=== PATIENT | male | born 1950 | race Caucasian/White ===

== ENCOUNTER 2018-10-30 12:42 | Inpatient (IN) ==
[2018-10-30] MEDS ORDERED: Sodium Chlor 0.9% Inj 500 ML IV.SIG ONE (13:39)
--- NOTE | 2018-10-30 13:52 | ED ---
HPI General Chief complaint: Weakness Stated complaint: CA pt/gen weakness Time Seen by Provider: 10/30/18 13:17 Source: patient and family Mode of arrival: ambulatory Limitations: no limitations History of Present Illness HPI Narrative: 68 YO M presents to the ED for evaluation of weakness and requesting consult by a general surgeon. The patient has been unable to drink fluids or eat solids for approximately 5+ days. The patient's is at bedside and provides the history. 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 He was diagnosed with lung cancer in 2016 and completed chemo and radiation in May of 2017. On 11/24/17 the patient was taken to the [facility] by ambulance when he was somnolent after taking some narcotic pain medications. While there he was found to have malignant disease progression of the left lung with invasion into the mediastinum and the osseous structures as well as pulmonary nodules along the upper left lobe. The patient's states that PEG tube placement was attempted by GI but they were unsuccessful secondary to inflammation, possibly invasion of the mass into the esophagus. The patient was then scheduled to have the PEG tube placed by general surgery. However, after the procedure was not performed in a timely manner the patient left AGAINST MEDICAL ADVICE from the outside hospital. On presentation the patient complains of hunger and weakness. He complains of left -sided chest and shoulder pain. He endorses O2 use at home. He denies palpitations, shortness of breath, abdominal pain, lower extremity edema. He has a primary care provider, Dr. Owens, here in [place] but has not yet established oncology follow-up since he recently moved from [place]. Related Data Home Medications Medication Instructions Recorded Confirmed levothyroxine 88 mcg PO DAILY 10/30/18 10/30/18 Allergies Allergy/AdvReac Type Severity Reaction Status Date / Time No Known Allergies Allergy Unverified 07/09/18 14:26 Review of Systems ROS: all other systems reviewed are negative [facility] Medical History Medical History DVT (deep venous thrombosis) (Acute) Lung cancer (Acute) Nasopharyngeal cancer (Acute) Surgical History Surgical History Hx of hernia repair (Acute) Social History Social History Substance History: No History of Abuse Smoking Status: Former smoker Tobacco Type: Cigarettes How Often Do You Have a Drink Containing Alcohol: Never Recent Travel in [facility] within the Last 8 Weeks: No Recent Out of Country Travel within the Last 8 Weeks: No Immunization History Tetanus Immunization: Unsure Exam Narrative Exam Narrative: GENERAL: Chronically ill-appearing white male in no acute distress. SKIN: Focused skin assessment warm/dry. HEAD: Atraumatic. Normocephalic. EYES: Pupils equal and round. No scleral icterus. No injection or drainage. ENT: No nasal bleeding or discharge. Mucous membranes pink and moist. NECK: Trachea midline. No JVD. CARDIOVASCULAR: Regular rate and rhythm. No murmur appreciated. RESPIRATORY: No accessory muscle use. Clear to auscultation. Breath sounds diminished in the left upper lobe. Patient's on 2 L O2 by nasal cannula. GASTROINTESTINAL: Abdomen soft, non-tender, nondistended. Hepatic and splenic margins not palpable. MUSCULOSKELETAL: No obvious deformities. No clubbing. No cyanosis. No edema. Homans sign negative bilaterally. NEUROLOGICAL: Awake and alert. No obvious cranial nerve deficits. Motor grossly within normal limits. Normal speech. PSYCHIATRIC: Appropriate mood and affect; insight and judgment normal. Course Initial Documented Vital Signs Temperature 97.6 F 10/30/18 12:50 Pulse Rate 79 10/30/18 12:50 Respiratory Rate 16 10/30/18 12:50 Blood Pressure 152/93 H 10/30/18 12:50 Pulse Oximetry 92 L 10/30/18 12:50 Last Documented Vital Signs Temperature 97.6 F 10/30/18 12:50 Pulse Rate 63 10/30/18 12:58 Respiratory Rate 18 10/30/18 12:58 Blood Pressure 184/102 H 10/30/18 12:58 Pulse Oximetry 92 L 10/30/18 12:50 Medical Decision Making JACQUELYN Attestation JACQUELYN supervised visit: Yes Attestation: The history, exam, and medical decision-making in the associated mid-level provider note were completed with my assistance. I reviewed and agree with the findings presented. I attest that I had a [id number] encounter with the patient on the same day, and personally performed and documented my assessment and findings in the medical record. *My assessment and Findings: 68-year-old man, head and neck cancer with mediastinal mass, unable to tolerate fluids, unable to get PEG tube at outside hospital. Recommend admission, IV fluid hydration, surgical consultation. MDM Narrative Medical decision making narrative: 68-year-old male with PMH of nasopharyngeal cancer and lung cancer presents to the ED requesting general surgery consult. Patient was seen at [facility] last week and found to have significant malignant disease progression from the left lung. The patient has been unable to eat or drink anything for at least 5 days. Gastroenterology attempted to place a PEG tube at the outside hospital but were unsuccessful secondary to distortion of the anatomy. The patient was awaiting general surgery PEG tube placement at [facility] when he left AGAINST MEDICAL ADVICE yesterday. Patient recently moved from [place], does not have an oncologist in the area. Hypertensive on presentation, chronically ill- appearing with diminished breath sounds in the left upper lobe. Exam otherwise unremarkable. IV was established. Patient was administered a half liter normal saline and 4 mg morphine. Records from the outside hospital were requested. They have not been received at time of admission. CBC reveals WBC 3.8, RBC 3.18, Hgb 9.7, Hct 28.1. CMP remarkable for BUN 33, Cr1.57. EKG unremarkable. I spoke with the residents who agree to accept the patient to the medicine service with general surgery consult. Please see their notes for disposition. Medical Screen Exam Complete: Yes Emergency Medical Condition: Yes Differential Diagnosis Differential Diagnosis: Metastatic lung CA versus dysphagia versus metabolic derangement versus other Lab Data Result diagrams: 10/30/18 13:46 10/30/18 13:46 Lab Results 10/30/18 10/30/18 10/30/18 Range/Units 13:46 13:46 13:46 WBC 3.8 L (4.0-11.0) th/mm3 RBC 3.18 L (4.50-5.90) mil/mm3 Hgb 9.7 L (13.0-17.0) gm/dL Hct 28.1 L (39.0-51.0) % MCV 88.4 (80.0-100.0) fL MCH 30.5 (27.0-34.0) pg MCHC 34.5 (32.0-36.0) % RDW 16.5 (11.6-17.2) % Plt Count 199 (150-450) th/mm3 MPV 7.6 (7.0-11.0) fL Neut % (Auto) 72.1 H (16.0-70.0) % Lymph % (Auto) 14.7 (9.0-44.0) % Barber % (Auto) 10.9 H (0.0-8.0) % Eos % (Auto) 2.1 (0.0-4.0) % Baso % (Auto) 0.2 (0.0-2.0) % Neut # (Auto) 2.7 (1.8-7.7) th/mm3 Lymph # (Auto) 0.6 L (1.0-4.8) th/mm3 Barber # (Auto) 0.4 (0.0-0.9) th/mm3 Eos # (Auto) 0.1 (0.0-0.4) th/mm3 Baso # (Auto) 0.0 (0.0-0.2) th/mm3 WBC Differential . Differential Comment Auto diff final PT 11.9 H (9.8-11.6) sec INR 1.2 Ratio Sodium 141 (136-145) meq/L Potassium 3.9 (3.5-5.1) meq/L Chloride 103 (98-107) meq/L Carbon Dioxide 31.9 (21.0-32.0) meq/L Anion Gap 6 (5-15) meq/L BUN 33 H (7-18) mg/dL Creatinine 1.57 H (0.60-1.30) mg/dL Estimated GFR 44 L (>89) mL/min Random Glucose 68 L (74-106) mg/dL Calcium 8.7 (8.5-10.1) mg/dL Magnesium 1.6 (1.5-2.5) mg/dL Total Bilirubin 0.5 (0.2-1.0) mg/dL AST 29 (15-37) U/L ALT 31 (12-78) U/L Alkaline Phosphatase 79 (45-117) U/L Troponin I (0.02-0.05) ng/mL Total Protein 6.8 (6.4-8.2) g/dL Albumin 3.2 L (3.4-5.0) g/dL Blood Type Blood Type Recheck Antibody Screen 10/30/18 10/30/18 Range/Units 13:46 13:46 WBC (4.0-11.0) th/mm3 RBC (4.50-5.90) mil/mm3 Hgb (13.0-17.0) gm/dL Hct (39.0-51.0) % MCV (80.0-100.0) fL MCH (27.0-34.0) pg MCHC (32.0-36.0) % RDW (11.6-17.2) % Plt Count (150-450) th/mm3 MPV (7.0-11.0) fL Neut % (Auto) (16.0-70.0) % Lymph % (Auto) (9.0-44.0) % Barber % (Auto) (0.0-8.0) % Eos % (Auto) (0.0-4.0) % Baso % (Auto) (0.0-2.0) % Neut # (Auto) (1.8-7.7) th/mm3 Lymph # (Auto) (1.0-4.8) th/mm3 Barber # (Auto) (0.0-0.9) th/mm3 Eos # (Auto) (0.0-0.4) th/mm3 Baso # (Auto) (0.0-0.2) th/mm3 WBC Differential Differential Comment PT (9.8-11.6) sec INR Ratio Sodium (136-145) meq/L Potassium (3.5-5.1) meq/L Chloride (98-107) meq/L Carbon Dioxide (21.0-32.0) meq/L Anion Gap (5-15) meq/L BUN (7-18) mg/dL Creatinine (0.60-1.30) mg/dL Estimated GFR (>89) mL/min Random Glucose (74-106) mg/dL Calcium (8.5-10.1) mg/dL Magnesium (1.5-2.5) mg/dL Total Bilirubin (0.2-1.0) mg/dL AST (15-37) U/L ALT (12-78) U/L Alkaline Phosphatase (45-117) U/L Troponin I Less than 0.02 L (0.02-0.05) ng/mL Total Protein (6.4-8.2) g/dL Albumin (3.4-5.0) g/dL Blood Type A Positive Blood Type Recheck Required Antibody Screen Negative Discharge Plan Discharge Disposition Patient Disposition: ED Admit(ED Internal Use Only) Discharge Order Discharge Orders: ED Use Only Admit Order (Routine); Ordered 10/30/18 Ordered By: Lilia Berrios Physicians Team ED Provider: Zafar Bojorquez ED Midlevel Provider: Lilia Berrios Primary Care Provider: Wilfred Leong Attending Provider: Spencer Garcia ED Status: Admitted Patient Addendum entered and electronically signed by SOPHIA Buchanan 10/30/18 15: 59: EKG rate 62, sinus rhythm. KS interval 162, QRS 94, QTc 438 ms. Normal axis. No acute ST changes.
[2018-10-30] MEDS ORDERED: Morphine Inj 4 MG/ML Vial IV.PUSH ONE ×2 (13:58→23:11)
[2018-10-30 14:02] LABS: Baso % (Auto) 0.2 % (0.0-2.0); Eos # (Auto) 0.1 th/mm3 (0.0-0.4); Eos % (Auto) 2.1 % (0.0-4.0); Hematocrit 28.1 % (39.0-51.0); Hemoglobin 9.7 gm/dL (13.0-17.0); Lymph # (Auto) 0.6 th/mm3 (1.0-4.8); Lymph % (Auto) 14.7 % (9.0-44.0); Mean Corpuscular HGB Conc 34.5 % (32.0-36.0); Mean Corpuscular Hemoglobin 30.5 pg (27.0-34.0); Mean Corpuscular Volume 88.4 fL (80.0-100.0); Mean Platelet Volume 7.6 fL (7.0-11.0); Mono # (Auto) 0.4 th/mm3 (0.0-0.9); Mono % (Auto) 10.9 % (0.0-8.0); Neut # (Auto) 2.7 th/mm3 (1.8-7.7); Neut % (Auto) 72.1 % (16.0-70.0); Platelet Count 199 th/mm3 (150-450); Red Blood Count 3.18 mil/mm3 (4.50-5.90); Red Cell Distribution Width 16.5 % (11.6-17.2); White Blood Count 3.8 th/mm3 (4.0-11.0)
[2018-10-30 14:12] LABS: INR 1.2 Ratio; Prothrombin Time 11.9 sec (9.8-11.6)
[2018-10-30 14:21] LABS: Albumin 3.2 g/dL (3.4-5.0); Anion Gap 6 meq/L (5-15); Aspartate Aminotransferase 29 U/L (15-37); Blood Urea Nitrogen 33 mg/dL (7-18); Calcium 8.7 mg/dL (8.5-10.1); Carbon Dioxide 31.9 meq/L (21.0-32.0); Chloride 103 meq/L (98-107); Glomerular Filtration Rate 44 mL/min (>89); Glucose,Random 68 mg/dL (74-106); Magnesium 1.6 mg/dL (1.5-2.5); Potassium 3.9 meq/L (3.5-5.1); Sodium 141 meq/L (136-145)
[2018-10-30 14:24] LABS: Alanine Aminotransferase 31 U/L (12-78); Alkaline Phosphatase 79 U/L (45-117); Total Protein 6.8 g/dL (6.4-8.2)
[2018-10-30] MEDS ORDERED: Bisacodyl 10 MG Supp RECTAL PRN ×2 (15:54→17:05)
[2018-10-30] MEDS ORDERED: Labetalol HCl Inj 100 MG/20 ML Vial IV.PUSH ONE (15:55)
--- NOTE | 2018-10-30 16:39 | P.HPFP ---
History of Present Illness Primary Care Physician: Wilfred Gladiskofiharman Leong <Spencer Garcia - 10/30/18 21:17> Wilfred Leong <Yanetbernadette Daphney Sullivan N - 10/30/18 16:39> History of Present Illness: 68-year-old male presenting to the hospital with dysphasia and inability to swallow both liquids and solids. He was recently hospitalized at [facility] for dysphagia. While at hospital, he was evaluated with a CT of the chest showing recurrent lung cancer on the left side with mediastinal involvement. While hospitalized, GI attempted to place a PEG tube, however felt that it was safer to proceed with surgical placement, however patient left AMA yesterday prior to surgical intervention. He continues to be unable to swallow and presents to our emergency department for further evaluation and possible surgical placement of PEG tube. He has a history significant for left lung cancer status post resection and chemotherapy with apparent recurrence and bony/mediastinal involvement. He does have an oncologist with Dr. Sapp, and a left upper chest port was recently placed earlier this week in preparation for chemotherapy. He has not had any treatment for this knee recurrence of lung cancer as of yet. 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 At that time he did require a PEG tube for nutrition <RadhaEmbery - 10/30/18 21:17> 68 y/o M presenting to the hospital w/dysphagia. Here with . Patient is difficult to understand. Went via ambulance to after passing out in the kitchen (was somnolent after taking narcotic pain medication). Imaging was performed and showed lung cancer w/possible mets to a left hilar lymph node. Met with oncologist Dr. Sapp. Did swallow study and showed severe dysphagia. About to have port and feeding tube placed. Tried to put feeding tube down his throat but he could feel the whole thing and was in severe pain. Planned to place PEG tube but due to procedure being delayed until , became upset and left AMA yesterday. Since then, still can't eat or drink and has not taken anything. Last year had lung cancer and got a wedge resection of the left and chemo. Since then, was getting regular imaging which showed clear lungs. Last done in April or May and was clear. Had just started to follow with oncologist, who is Dr. Sapp. PCP is Dr. Owens in [place]. Endorses LE edema, hunger, weakness, overall discomfort. No SOB, palpitations, abdominal pain. Hx limited by patient cooperativity, answers most of questions. Med Hx: Nasopharyngeal ca 9 years ago, treated w/chemo and radiation lung ca in 2017, chemo and radiation tx'd in 2017 HTN hypothyroidism Surg Hx: Double hernia repair Family Hx: unknown Social hx: Former smoker, 100 pack years No ETOH use, no drug use <Daphney Navarrete 10/30/18 17:58> - Diagnosis (1) Dysphagia (2) Lung cancer, primary, with metastasis from lung to other site (3) Hypertension (4) Hypothyroidism (5) KIM (acute kidney injury) <Spencer Garcia 10/30/18 21:17> (1) Dysphagia (2) Lung cancer, primary, with metastasis from lung to other site (3) Hypertension (4) Hypothyroidism (5) KIM (acute kidney injury) <Daphney Navarrete 10/30/18 17:25> Inpatient Certification: I certify that the inpatient services were ordered in accordance with Medicare regulations governing the order. This includes certification that hospital inpatient services are reasonable and necessary and in the case of services not specified as inpatient-only under 42 CFR 419.22(n), that they are appropriately provided as inpatient services in accordance to with the 2-midnight benchmark under 43 CFR 412.3(e) <Spencer Garcia 10/30/18 21:17> I certify that the inpatient services were ordered in accordance with Medicare regulations governing the order. This includes certification that hospital inpatient services are reasonable and necessary and in the case of services not specified as inpatient-only under 42 CFR 419.22(n), that they are appropriately provided as inpatient services in accordance to with the 2-midnight benchmark under 43 CFR 412.3(e) <Daphney Navarrete 10/30/18 16:39> Estimated Total Length of Stay (Days): 2 <Daphney Navarrete 10/30/18 16:39> Plans for Post Hospital Care: Not yet determined <Daphney Navarrete 10/30/18 16:39> Review of Systems All other systems reviewed negative except as stated in HPI, other (Unable to obtain clear ROS from patient due to cooperativity) <Daphney Navarrete 17:58> [facility] - History History Provided By: Patient <Daphney Navarrete 10/30/18 16:39> - Medical History Medical History: Medical History (Last Reviewed 10/30/18 @ 14:32 by SOPHIA Buchanan) DVT (deep venous thrombosis) Lung cancer Nasopharyngeal cancer <Spencer Garcia 10/30/18 21:17> Medical History (Last Reviewed 10/30/18 @ 14:32 by SOPHIA Buchanan) DVT (deep venous thrombosis) Lung cancer Nasopharyngeal cancer <Daphney Navarrete 10/30/18 16:39> - Surgical History Surgical History: Surgical History (Last Reviewed 10/30/18 @ 14:32 by SOPHIA Buchanan) Hx of hernia repair <Spencer Garcia 10/30/18 21:17> Surgical History (Last Reviewed 10/30/18 @ 14:32 by SOPHIA Buchanan) Hx of hernia repair <Daphney Navarrete 10/30/18 16:39> - Tobacco History Smoking Status: Former smoker <Daphney Navarrete 10/30/18 16:39> Tobacco Type: Cigarettes <Daphney Navarrete 10/30/18 16:39> - Alcohol History How Often Do You Have a Drink Containing Alcohol: Never <Daphney Navarrete 16:39> - Substance Use History Substance History: No History of Abuse <Daphney Navarrete 10/30/18 16:39> - Travel History Recent Travel in the [facility] Within the Last 8 Weeks: No <Daphney Navarrete 10/30 16:39> Recent Travel Out of the Country Within the Last 8 Weeks: No <Daphney Navarrete 10/30/18 16:39> - Immunization History Tetanus Immunization: Unsure <Daphney Navarrete 10/30/18 16:39> Medications and Allergies Allergies Allergy/AdvReac Type Severity Reaction Status Date / Time No Known Allergies Allergy Unverified 07/09/18 14:26 <Spencer Garcia 10/30/18 21:17> Home Medications Medication Instructions Recorded Confirmed Type fentanyl 10/30/18 History levothyroxine 88 mcg PO DAILY 10/30/18 10/30/18 History mirtazapine 7.5 mg PO DAILY 10/30/18 10/30/18 History tiotropium bromide [Spiriva with 1 cap INHALATION DAILY 10/30/18 10/30/18 History HandiHaler] <Spencer Garcia - 10/30/18 21:17> Active Medications: Active Medications Al Hydroxide/Mg Hydroxide (Milk Of Magnesia Liq) 30 ml PO Q12H PRN PRN Reason: Mild Constipation Bisacodyl (Dulcolax Supp) 10 mg RECTAL DAILY PRN PRN Reason: SEVERE CONSITIPATION Heparin Sodium (Porcine) (Heparin Inj) 5,000 units SQ Q8H [facility] Last Admin: 10/30/18 18:38 Dose: 5,000 units Hydralazine HCl (Apresoline Inj) 20 mg IV.PUSH Q6H PRN PRN Reason: SBP>180, DBP>100, HR>65 Last Admin: 10/30/18 18:26 Dose: 20 mg Potassium Chloride/Dextrose/Sod Cl (D5w/1/2ns + Kcl 20 Meq Inj) 1,000 mls @ 120 mls/hr IV.CONT .Q8H20M [facility] Last Admin: 10/30/18 18:25 Dose: 120 mls/hr Lactulose (Lactulose Liq) 30 ml PO DAILY PRN PRN Reason: SEVERE CONSITIPATION Levothyroxine Sodium (Synthroid) 88 mcg PO 0600 [facility] Non-Formulary Medication (Mirtazapine [Mirtazapine]) 7.5 mg PO DAILY [facility] Ondansetron HCl (Zofran Inj) 4 mg IV.PUSH Q6H PRN PRN Reason: NAUSEA OR VOMITING Sennosides (Senokot) 17.2 mg PO Q12H PRN PRN Reason: Moderate Constipation Sodium Chloride (Ns Flush) 2 ml IV.FLUSH BID [facility] Sodium Chloride (Ns Flush) 2 ml IV.FLUSH PRN PRN PRN Reason: FLUSH AFTER USING IV ACCESS Tiotropium [place] (Spiriva 18 Mcg Inh) 18 mcg INH DAILY [facility] <Spencer Garcia - 10/30/18 21:17> Active Medications Al Hydroxide/Mg Hydroxide (Milk Of Magnesia Liq) 30 ml PO Q12H PRN PRN Reason: Mild Constipation Bisacodyl (Dulcolax Supp) 10 mg RECTAL DAILY PRN PRN Reason: SEVERE CONSITIPATION Lactulose (Lactulose Liq) 30 ml PO DAILY PRN PRN Reason: SEVERE CONSITIPATION Sennosides (Senokot) 17.2 mg PO Q12H PRN PRN Reason: Moderate Constipation Sodium Chloride (Ns Flush) 2 ml IV.FLUSH BID ANTHONY Sodium Chloride (Ns Flush) 2 ml IV.FLUSH PRN PRN PRN Reason: FLUSH AFTER USING IV ACCESS <Daphney Navarrete N - 10/30/18 16:39> Exam Vital signs: Vital Signs 10/30/18 12:50 10/30/18 12:58 10/30/18 17:11 Temperature 97.6 F Pulse Rate 79 63 65 Respiratory Rate 16 18 20 Blood Pressure 152/93 H 184/102 H 175/106 H Pulse Oximetry 92 L 95 10/30/18 18:09 10/30/18 18:45 10/30/18 20:04 Temperature 98.7 F 98.2 F Pulse Rate 67 71 Respiratory Rate 16 18 Blood Pressure 212/130 H 164/98 H 116/76 Pulse Oximetry 100 97 Intake & Output 10/30/18 10/30/18 10/31/18 06:59 18:59 06:59 Intake Total 500 / 500 Balance 500 / 500 Weight 72.575 kg Intake: IV 500 / 500 <Spencer Garcia - 10/30/18 21:17> Vital Signs 10/30/18 12:50 10/30/18 12:58 Temperature 97.6 F Pulse Rate 79 63 Respiratory Rate 16 18 Blood Pressure 152/93 H 184/102 H Pulse Oximetry 92 L Intake & Output 10/29/18 10/30/18 10/30/18 18:59 06:59 18:59 Weight 72.575 kg <Daphney Navarrete - 10/30/18 16:39> Narrative: General: Thin, male sitting up in bed in no obvious distress Skin: Warm and dry with no obvious lesions CV: Regular rate and rhythm Respiratory: To auscultation bilaterally Chest: Port placed in left upper chest without evidence of erythema or fluctuance Extremities: No evidence of clubbing, cyanosis, or edema <Ember Garciay - 10/30/18 21:17> GENERAL: Thin, pale gentleman appearing older than his age sitting up in bed, playing games on his tablet. SKIN: Warm and dry. HEAD: Atraumatic. Normocephalic. EYES: Pupils equal and round. No scleral icterus. No injection or drainage. ENT: No nasal bleeding or discharge. Mucous membranes slightly moist, brown growth on tongue. NECK: Trachea midline. No JVD. CARDIOVASCULAR: Regular rate and rhythm. RESPIRATORY: No accessory muscle use. poor inspiratory air flow. Lungs clear. GASTROINTESTINAL: Abdomen non-distended. MUSCULOSKELETAL: Extremities w/ 1+ pitting edema. NEUROLOGICAL: Awake and alert. No obvious cranial nerve deficits. Motor grossly within normal limits. Muffled speech. PSYCHIATRIC: Appropriate mood and affect; insight and judgment normal. <Jocelyne Daphney Sullivan N - 10/30/18 17:58> Results - Labs Result diagrams: 10/30/18 13:46 10/30/18 13:46 <RadhaSpencer - 10/30/18 21:17> Abnormal lab results 10/30/18 10/30/18 10/30/18 Range/Units 13:46 13:46 13:46 WBC 3.8 L (4.0-11.0) th/mm3 RBC 3.18 L (4.50-5.90) mil/mm3 Hgb 9.7 L (13.0-17.0) gm/dL Hct 28.1 L (39.0-51.0) % Neut % (Auto) 72.1 H (16.0-70.0) % Lab[place] % (Auto) 10.9 H (0.0-8.0) % Lymph # (Auto) 0.6 L (1.0-4.8) th/mm3 PT 11.9 H (9.8-11.6) sec BUN 33 H (7-18) mg/dL Creatinine 1.57 H (0.60-1.30) mg/dL Estimated GFR 44 L (>89) mL/min Random Glucose 68 L (74-106) mg/dL Troponin I (0.02-0.05) ng/mL Albumin 3.2 L (3.4-5.0) g/dL Urine Ketones (Negative) mg/dL Urine Mucus (Occasional) /lpf 12/19/18 12/19/18 Range/Units 13:46 17:30 WBC (4.0-11.0) th/mm3 RBC (4.50-5.90) mil/mm3 Hgb (13.0-17.0) gm/dL Hct (39.0-51.0) % Neut % (Auto) (16.0-70.0) % Labette % (Auto) (0.0-8.0) % Lymph # (Auto) (1.0-4.8) th/mm3 PT (9.8-11.6) sec BUN (7-18) mg/dL Creatinine (0.60-1.30) mg/dL Estimated GFR (>89) mL/min Random Glucose (74-106) mg/dL Troponin I Less than 0.02 L (0.02-0.05) ng/mL Albumin (3.4-5.0) g/dL Urine Ketones Trace H (Negative) mg/dL Urine Mucus Few H (Occasional) /lpf Short CBC 10/30/18 Range/Units 13:46 WBC 3.8 L (4.0-11.0) th/mm3 Hgb 9.7 L (13.0-17.0) gm/dL Hct 28.1 L (39.0-51.0) % Plt Count 199 (150-450) th/mm3 BMP 10/30/18 13:46 Sodium 141 Potassium 3.9 Chloride 103 Carbon Dioxide 31.9 BUN 33 H Creatinine 1.57 H Calcium 8.7 Cardiac Enzymes 10/30/18 Range/Units 13:46 Troponin I Less than 0.02 L (0.02-0.05) ng/mL Liver Function 10/30/18 Range/Units 13:46 Total Bilirubin 0.5 (0.2-1.0) mg/dL AST 29 (15-37) U/L ALT 31 (12-78) U/L Alkaline Phosphatase 79 (45-117) U/L Albumin 3.2 L (3.4-5.0) g/dL Urine 10/30/18 Range/Units 17:30 Urine Color Yellow (Yellw/Straw) Urine Clarity Clear (Clear) Urine pH 5.0 (5.0-8.5) Ur Specific [place] 1.014 (1.002-1.035) Urine Protein Negative (Neg-Trace) mg/dL Urine Glucose (UA) Negative (Negative) mg/dL <Spencer Garcia - 10/30/18 21:17> Abnormal lab results 10/30/18 10/30/18 10/30/18 Range/Units 13:46 13:46 13:46 WBC 3.8 L (4.0-11.0) th/mm3 RBC 3.18 L (4.50-5.90) mil/mm3 Hgb 9.7 L (13.0-17.0) gm/dL Hct 28.1 L (39.0-51.0) % Neut % (Auto) 72.1 H (16.0-70.0) % Lab[place] % (Auto) 10.9 H (0.0-8.0) % Lymph # (Auto) 0.6 L (1.0-4.8) th/mm3 PT 11.9 H (9.8-11.6) sec BUN 33 H (7-18) mg/dL Creatinine 1.57 H (0.60-1.30) mg/dL Estimated GFR 44 L (>89) mL/min Random Glucose 68 L (74-106) mg/dL Troponin I (0.02-0.05) ng/mL Albumin 3.2 L (3.4-5.0) g/dL 10/30/18 Range/Units 13:46 WBC (4.0-11.0) th/mm3 RBC (4.50-5.90) mil/mm3 Hgb (13.0-17.0) gm/dL Hct (39.0-51.0) % Neut % (Auto) (16.0-70.0) % Lab[place] % (Auto) (0.0-8.0) % Lymph # (Auto) (1.0-4.8) th/mm3 PT (9.8-11.6) sec BUN (7-18) mg/dL Creatinine (0.60-1.30) mg/dL Estimated GFR (>89) mL/min Random Glucose (74-106) mg/dL Troponin I Less than 0.02 L (0.02-0.05) ng/mL Albumin (3.4-5.0) g/dL Short CBC 12/19/18 Range/Units 13:46 WBC 3.8 L (4.0-11.0) th/mm3 Hgb 9.7 L (13.0-17.0) gm/dL Hct 28.1 L (39.0-51.0) % Plt Count 199 (150-450) th/mm3 [facility] 10/30/18 13:46 Sodium 141 Potassium 3.9 Chloride 103 Carbon Dioxide 31.9 BUN 33 H Creatinine 1.57 H Calcium 8.7 Cardiac Enzymes 10/30/18 Range/Units 13:46 Troponin I Less than 0.02 L (0.02-0.05) ng/mL Liver Function 10/30/18 Range/Units 13:46 Total Bilirubin 0.5 (0.2-1.0) mg/dL AST 29 (15-37) U/L ALT 31 (12-78) U/L Alkaline Phosphatase 79 (45-117) U/L Albumin 3.2 L (3.4-5.0) g/dL [facility] 16[facility]39> Caprini VTE Risk Assessment Caprini VTE Risk Assessment: Moderate/High Risk (score >= 2) <[facility] 17:58> Caprini Risk Assessment Model: Point Value = 1 Point Value = 2 Point Value = 3 Point Value = 5 Age 41-60 Minor surgery BMI > 25 kg/m2 Swollen legs Varicose veins or History of unexplained or recurrent spontaneous Oral contraceptives or hormone replacement Sepsis (< 1 month) Serious lung disease, including pneumonia (< 1 month) Abnormal pulmonary function Acute myocardial infarction Congestive heart failure (< 1 month) History of inflammatory bowel disease Medical patient at bed rest Age 61-74 Arthroscopic surgery Major open surgery (> 45 min) Laparoscopic surgery (> 45 min) Malignancy Confined to bed (> 72 hours) Immobilizing plaster cast Central venous access Age >= 75 History of VTE Family history of VTE Factor V Leiden Prothrombin [id number] Lupus anticoagulant Anticardiolipin antibodies Elevated serum homocysteine Heparin-induced thrombocytopenia Other congenital or acquired thrombophilia Stroke (< 1 month) Elective arthroplasty Hip, pelvis, or leg fracture Acute spinal cord injury (< 1 month) <Spencer Garcia 10/30/18 21:17> Point Value = 1 Point Value = 2 Point Value = 3 Point Value = 5 Age 41-60 Minor surgery BMI > 25 kg/m2 Swollen legs Varicose veins or History of unexplained or recurrent spontaneous Oral contraceptives or hormone replacement Sepsis (< 1 month) Serious lung disease, including pneumonia (< 1 month) Abnormal pulmonary function Acute myocardial infarction Congestive heart failure (< 1 month) History of inflammatory bowel disease Medical patient at bed rest Age 61-74 Arthroscopic surgery Major open surgery (> 45 min) Laparoscopic surgery (> 45 min) Malignancy Confined to bed (> 72 hours) Immobilizing plaster cast Central venous access Age >= 75 History of VTE Family history of VTE Factor V Leiden Prothrombin [id number] Lupus anticoagulant Anticardiolipin antibodies Elevated serum homocysteine Heparin-induced thrombocytopenia Other congenital or acquired thrombophilia Stroke (< 1 month) Elective arthroplasty Hip, pelvis, or leg fracture Acute spinal cord injury (< 1 month) <Daphney Navarrete - 10/30/18 16:39> Prophylaxis Regimen: Total Risk Factor Score Risk Level Prophylaxis Regimen 0-1 Low Early ambulation 2 Moderate Order ONE of the following: *Sequential Compression Device (SCD) *Heparin 5000 units SQ BID 3-4 Higher Order ONE of the following medications: *Heparin 5000 units SQ TID *Enoxaparin/Lovenox 40 mg SQ daily (WT < 150 kg, CrCl > 30 mL/min) *Enoxaparin/Lovenox 30 mg SQ daily (WT < 150 kg, CrCl > 10-29 mL/min) *Enoxaparin/Lovenox 30 mg SQ BID (WT < 150 kg, CrCl > 30 mL/min) AND/OR *Sequential Compression Device (SCD) 5 or more Highest Order ONE of the following medications: *Heparin 5000 units SQ TID (Preferred with Epidurals) *Enoxaparin/Lovenox 40 mg SQ daily (WT < 150 kg, CrCl > 30 mL/min) *Enoxaparin/Lovenox 30 mg SQ daily (WT < 150 kg, CrCl > 10-29 mL/min) *Enoxaparin/Lovenox 30 mg SQ BID (WT < 150 kg, CrCl > 30 mL/min) AND *Sequential Compression Device (SCD) <Spencer Garcia - 10/30/18 21:17> Total Risk Factor Score Risk Level Prophylaxis Regimen 0-1 Low Early ambulation 2 Moderate Order ONE of the following: *Sequential Compression Device (SCD) *Heparin 5000 units SQ BID 3-4 Higher Order ONE of the following medications: *Heparin 5000 units SQ TID *Enoxaparin/Lovenox 40 mg SQ daily (WT < 150 kg, CrCl > 30 mL/min) *Enoxaparin/Lovenox 30 mg SQ daily (WT < 150 kg, CrCl > 10-29 mL/min) *Enoxaparin/Lovenox 30 mg SQ BID (WT < 150 kg, CrCl > 30 mL/min) AND/OR *Sequential Compression Device (SCD) 5 or more Highest Order ONE of the following medications: *Heparin 5000 units SQ TID (Preferred with Epidurals) *Enoxaparin/Lovenox 40 mg SQ daily (WT < 150 kg, CrCl > 30 mL/min) *Enoxaparin/Lovenox 30 mg SQ daily (WT < 150 kg, CrCl > 10-29 mL/min) *Enoxaparin/Lovenox 30 mg SQ BID (WT < 150 kg, CrCl > 30 mL/min) AND *Sequential Compression Device (SCD) <Daphney Navarrete - 10/30/18 16:39> Assessment and Plan - Assessment (1) Dysphagia Code(s): R13.10 - Dysphagia, unspecified Status: Acute (2) Lung cancer, primary, with metastasis from lung to other site Code(s): C34.90 - Malignant neoplasm of unspecified part of unspecified bronchus or lung Status: Acute (3) Hypertension Code(s): I10 - Essential (primary) hypertension Status: Acute (4) Hypothyroidism Code(s): E03.9 - Hypothyroidism, unspecified Status: Acute (5) KIM (acute kidney injury) Code(s): N17.9 - Acute kidney failure, unspecified Status: Acute <Spencer Garcia - 10/30/18 21:17> (1) Dysphagia Code(s): R13.10 - Dysphagia, unspecified Status: Acute Plan: May be 2/2 to lung cancer mets v other ca Consult to GS for PEG tube placement IVF @ maintenance rate w/dextrose and potassium NPO diet (2) Lung cancer, primary, with metastasis from lung to other site Code(s): C34.90 - Malignant neoplasm of unspecified part of unspecified bronchus or lung Status: Acute Plan: Planning to follow w/oncology outpatient (3) Hypertension Code(s): I10 - Essential (primary) hypertension Status: Acute Plan: Unable to take PO Hydralazine 20 mg IV Q6H PRN for BP >180/100 (4) Hypothyroidism Code(s): E03.9 - Hypothyroidism, unspecified Status: Acute Plan: Levothyroxine 88 mcg PO daily (5) KIM (acute kidney injury) Code(s): N17.9 - Acute kidney failure, unspecified Status: Acute Plan: May be 2/2 to dehydration Trend BMP daily On IVF, will con't to monitor Fluids: @ maintenance Electrolytes: an needed Nutrition: NPO DVT prophy: Heparin <Daphney Navarrete - 10/30/18 17:25> - Attending Attestation Patient case discussed with resident physicians I have independently examined the patient I have read the above note and agree with the assessment and plan as discussed with me I was involved in all medical decision making for this patient General surgery will be consulted for further evaluation of PEG tube placement -Begin IV fluids -Request records from recent [facility] hospitalization Hypertension: Blood pressure is significantly elevated, hydralazine ordered Spencer Garcia MD <Spencer Garcia - 10/30/18 21:17>
[2018-10-30] MEDS ORDERED: Lisinopril 10 MG Tablet PO SCH (17:15)
[2018-10-30 18:08] LABS: Bilirubin,Urine Negative (Negative); Clarity,Urine Clear (Clear); Color,Urine Yellow (Yellw/Straw); Glucose,Urine (UA) Negative (Negative); Hyaline Casts,Urine 5 /lpf (0-3); Leukocyte Esterase,Urine Negative (Negative); Mucus,Urine Few /lpf (Occasional); Nitrite,Urine Negative (Negative); Specific Gravity,Urine 1.014 (1.002-1.035); Squamous Epithelial Cell,Urine <1 /hpf (0-5)
[2018-10-30] MEDS: KCL 20 mEq/D5W/NaCl 0.45% Inj 1,000 ML IV.CONT SCH (18:25)
[2018-10-30] MEDS: Heparin - SQ 10,000 UNITS/ML Vial SQ SCH (18:38)
--- NOTE | 2018-10-30 18:58 | P.CON ---
History of Present Illness Consult date: 10/30/18 Reason for Consult: Placement of gastrostomy tube for nutrition Primary Care Provider: Wilfred Leong History of Present Illness: Patient is a 68-year-old male who was found to have left lung cancer with mediastinal disease. Patient has had previous wedge resection of left lung with chemotherapy. Patient had gastroenterology at [facility] attempt to place a PEG tube and while they were able to get the scope into the stomach, there was significant concern that the colon was interpositioned and they did not feel comfortable replacing the PEG tube. It was recommended for surgical consultation. The patient left the hospital yesterday due to possible delay in obtaining surgical feeding tube. Consulted at this time for consideration of gastrostomy tube placement. 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 The patient and his are familiar with bolus feeds. FOR[facility], [facility] - History History Provided By: Patient - Medical History Medical History: Medical History (Last Reviewed 10/30/18 @ 14:32 by SOPHIA Buchanan) DVT (deep venous thrombosis) Lung cancer Nasopharyngeal cancer - Surgical History Surgical History: Surgical History (Last Reviewed 10/30/18 @ 14:32 by SOPHIA Buchanan) Hx of hernia repair - Tobacco History Smoking Status: Former smoker Tobacco Type: Cigarettes - Alcohol History How Often Do You Have a Drink Containing Alcohol: Never - Substance Use History Substance History: No History of Abuse - Travel History Recent Travel in the [place] Within the Last 8 Weeks: No Recent Travel Out of the Country Within the Last 8 Weeks: No - Immunization History Tetanus Immunization: Unsure Medications and Allergies Active Medications: Active Medications Al Hydroxide/Mg Hydroxide (Milk Of Steven Liq) 30 ml PO Q12H PRN PRN Reason: Mild Constipation Bisacodyl (Dulcolax Supp) 10 mg RECTAL DAILY PRN PRN Reason: SEVERE CONSITIPATION Heparin Sodium (Porcine) (Heparin Inj) 5,000 units SQ Q8H ANTHONY Last Admin: 10/30/18 18:38 Dose: 5,000 units Hydralazine HCl (Apresoline Inj) 20 mg IV.PUSH Q6H PRN PRN Reason: SBP>180, DBP>100, HR>65 Last Admin: 10/30/18 18:26 Dose: 20 mg Potassium Chloride/Dextrose/Sod Cl (D5w/1/2ns + Kcl 20 Meq Inj) 1,000 mls @ 120 mls/hr IV.CONT .Q8H20M [facility] Last Admin: 10/30/18 18:25 Dose: 120 mls/hr Lactulose (Lactulose Liq) 30 ml PO DAILY PRN PRN Reason: SEVERE CONSITIPATION Levothyroxine Sodium (Synthroid) 88 mcg PO 0600 [facility] Non-Formulary Medication (Mirtazapine [Mirtazapine]) 7.5 mg PO DAILY [facility] Ondansetron HCl (Zofran Inj) 4 mg IV.PUSH Q6H PRN PRN Reason: NAUSEA OR VOMITING Sennosides (Senokot) 17.2 mg PO Q12H PRN PRN Reason: Moderate Constipation Sodium Chloride (Ns Flush) 2 ml IV.FLUSH BID [facility] Sodium Chloride (Ns Flush) 2 ml IV.FLUSH PRN PRN PRN Reason: FLUSH AFTER USING IV ACCESS Tiotropium [place] (Spiriva 18 Mcg Inh) 18 mcg INH DAILY [facility] Allergies Allergy/AdvReac Type Severity Reaction Status Date / Time No Known Allergies Allergy Unverified 07/09/18 14:26 Home Medications Medication Instructions Recorded Confirmed Type fentanyl 10/30/18 History levothyroxine 88 mcg PO DAILY 10/30/18 10/30/18 History mirtazapine 7.5 mg PO DAILY 10/30/18 10/30/18 History tiotropium bromide [Spiriva with 1 cap INHALATION DAILY 10/30/18 10/30/18 History HandiHaler] Physical Exam Vital signs: Vital Signs 10/30/18 12:50 10/30/18 12:58 10/30/18 17:11 Temperature 97.6 F Pulse Rate 79 63 65 Respiratory Rate 16 18 20 Blood Pressure 152/93 H 184/102 H 175/106 H Pulse Oximetry 92 L 95 10/30/18 18:09 Temperature 98.7 F Pulse Rate 67 Respiratory Rate 16 Blood Pressure 212/130 H Pulse Oximetry 100 Intake & Output 10/29/18 10/30/18 10/30/18 18:59 06:59 18:59 Intake Total 500 / 500 Balance 500 / 500 Weight 72.575 kg Intake: IV 500 / 500 - Constitutional no acute distress, chronically ill appearing - Routine HEENT Exam Head: Present: normocephalic, atraumatic - Routine Neck Exam Present: supple - Routine Respiratory Exam Present: CTA bilaterally - Routine Cardiovascular Exam Present: RRR - Routine Abdominal Exam Present: soft, surgical scars (Old gastrostomy tube site; inguinal hernia repair scars in both groins) Comments: Nondistended, nontender - Routine Skin Exam Present: intact, dry, warm - Routine Neurological Exam Present: alert, oriented X3 Cranial nerve VIII out on the right and partial hearing loss on the left. - Detailed Neurological Exam: Coma Scale Eye Opening: Spontaneous Verbal Response: Oriented Motor Response: Obey commands Gary Coma Scale Total: 15 Results - Labs CBC & Chem 7: 10/30/18 13:46 10/30/18 13:46 Labs: Laboratory Results - last 24 hr 10/30/18 10/30/18 10/30/18 13:46 13:46 13:46 WBC 3.8 L RBC 3.18 L Hgb 9.7 L Hct 28.1 L MCV 88.4 MCH 30.5 MCHC 34.5 RDW 16.5 Plt Count 199 MPV 7.6 Neut % (Auto) 72.1 H Lymph % (Auto) 14.7 Webb % (Auto) 10.9 H Eos % (Auto) 2.1 Baso % (Auto) 0.2 Neut # (Auto) 2.7 Lymph # (Auto) 0.6 L Webb # (Auto) 0.4 Eos # (Auto) 0.1 Baso # (Auto) 0.0 WBC Differential . Differential Comment Auto diff final PT 11.9 H INR 1.2 Sodium 141 Potassium 3.9 Chloride 103 Carbon Dioxide 31.9 Anion Gap 6 BUN 33 H Creatinine 1.57 H Estimated GFR 44 L Random Glucose 68 L Calcium 8.7 Magnesium 1.6 Total Bilirubin 0.5 AST 29 ALT 31 Alkaline Phosphatase 79 Troponin I Total Protein 6.8 Albumin 3.2 L Urine Color Urine Clarity Urine pH Ur Specific [place] Urine Protein Urine Glucose (UA) Urine Ketones Urine Occult Blood Urine Nitrate Urine Bilirubin Urine Urobilinogen Ur Leukocyte Esterase Urine RBC Urine WBC Ur Squamous Epith Cells Hyaline Casts Urine Mucus Micro UA Comment Ur Microscopic Review Urine Culture Comments Blood Type Blood Type Recheck Antibody Screen 10/30/18 10/30/18 10/30/18 13:46 13:46 17:30 WBC RBC Hgb Hct MCV MCH MCHC RDW Plt Count MPV Neut % (Auto) Lymph % (Auto) Webb % (Auto) Eos % (Auto) Baso % (Auto) Neut # (Auto) Lymph # (Auto) Webb # (Auto) Eos # (Auto) Baso # (Auto) WBC Differential Differential Comment PT INR Sodium Potassium Chloride Carbon Dioxide Anion Gap BUN Creatinine Estimated GFR Random Glucose Calcium Magnesium Total Bilirubin AST ALT Alkaline Phosphatase Troponin I Less than 0.02 L Total Protein Albumin Urine Color Yellow Urine Clarity Clear Urine pH 5.0 Ur Specific [place] 1.014 Urine Protein Negative Urine Glucose (UA) Negative Urine Ketones Trace H Urine Occult Blood Negative Urine Nitrate Negative Urine Bilirubin Negative Urine Urobilinogen Less than 2 Ur Leukocyte Esterase Negative Urine RBC 1 Urine WBC Less than 1 Ur Squamous Epith Cells <1 Hyaline Casts 5 Urine Mucus Few H Micro UA Comment Culture not ind Ur Microscopic Review Not Reportable Urine Culture Comments Culture not ind Blood Type A Positive Blood Type Recheck Required Antibody Screen Negative Assessment and Plan - Assessment (1) Unable to eat Code(s): F50.89 - Other specified eating disorder Status: Acute Plan: Laparoscopic gastrostomy tube placement, possible open placement. I have discussed risks of the procedure with the patient and his who was present in the presence of the nurse. Risks discussed include but are not limited to: Bleeding, infection, leakage requiring reoperation, as well as leakage around the tube site at the skin, clogging of the tube requiring replacement. I have discussed remedies consequences alternatives and convalescence; they vocalized understanding and agreed to proceed. We will attempt to have surgical procedure tomorrow afternoon. (2) Lung cancer, primary, with metastasis from lung to other site Code(s): C34.90 - Malignant neoplasm of unspecified part of unspecified bronchus or lung Status: Acute - Plan Discussed Condition With: Patient Nurse - Attending Attestation I attest that I had a [id number] encounter with the patient on the same day, and personally performed and documented my assessment and findings in the medical record. The following services were provided during this hospital visit: Chart data review, vital sign assessments/reviewing monitor data Review of consultation notes if present Medication orders/review and/or management Ordering and/or reviewing lab tests Ordering and/or interpreting/reviewing x-rays and/or diagnostic studies Care of the patient and discussion of the patient with the care team Documentation time To help prompt me to consider important information that might be impacting today's encounter and assessment, Information from prior notes written by myself or my colleagues may have been "brought forward/copy and pasted" into today's note.
[2018-10-30] MEDS ORDERED: hydrALAZINE HCl Inj 20 MG/ML Vial IV.PUSH PRN (19:00)
[2018-10-31] MEDS: Heparin - SQ 10,000 UNITS/ML Vial SQ SCH (02:32)
[2018-10-31] MEDS: KCL 20 mEq/D5W/NaCl 0.45% Inj 1,000 ML IV.CONT SCH ×3 (02:49→21:36)
[2018-10-31] MEDS ORDERED: Levothyroxine 88 MCG Tablet PO SCH (06:00)
[2018-10-31] MEDS: hydrALAZINE HCl Inj 20 MG/ML Vial IV.PUSH SCH ×3 (08:37→20:00)
[2018-10-31] MEDS: Tiotropium Bromide 18 MCG/ACT Inhaler INH SCH (08:38)
[2018-10-31] MEDS ORDERED: MIRTAZAPINE 7.5 MG PO SCH (09:00)
[2018-10-31] MEDS ORDERED: Mirtazapine 15 MG Tablet PO SCH (09:00)
--- NOTE | 2018-10-31 10:59 | P.PNFP ---
Subjective Interval history: No acute events overnight. Patient complaining of some left chest and shoulder pain, which she has had for the past 2 weeks, which he attributes to cancer mass-effect pushing on his nerves. Patient requesting more pain medication. He denies any shortness of breath or abdominal pain. Discussed plan of care with patient. <Ravi Jaimes - 10/31/18 10:59> Results - Labs Result diagrams: 10/30/18 13:46 10/30/18 13:46 <Spencer Garcia - 10/31/18 15:23> Abnormal lab results 10/30/18 Range/Units 17:30 Urine Ketones Trace H (Negative) mg/dL Urine Mucus Few H (Occasional) /lpf Urine 10/30/18 Range/Units 17:30 Urine Color Yellow (Yellw/Straw) Urine Clarity Clear (Clear) Urine pH 5.0 (5.0-8.5) Ur Specific Pierre Part 1.014 (1.002-1.035) Urine Protein Negative (Neg-Trace) mg/dL Urine Glucose (UA) Negative (Negative) mg/dL <Spencer Garcia - 10/31/18 15:23> Abnormal lab results 10/30/18 10/30/18 10/30/18 Range/Units 13:46 13:46 13:46 WBC 3.8 L (4.0-11.0) th/mm3 RBC 3.18 L (4.50-5.90) mil/mm3 Hgb 9.7 L (13.0-17.0) gm/dL Hct 28.1 L (39.0-51.0) % Neut % (Auto) 72.1 H (16.0-70.0) % [place] % (Auto) 10.9 H (0.0-8.0) % Lymph # (Auto) 0.6 L (1.0-4.8) th/mm3 PT 11.9 H (9.8-11.6) sec BUN 33 H (7-18) mg/dL Creatinine 1.57 H (0.60-1.30) mg/dL Estimated GFR 44 L (>89) mL/min Random Glucose 68 L (74-106) mg/dL Troponin I (0.02-0.05) ng/mL Albumin 3.2 L (3.4-5.0) g/dL Urine Ketones (Negative) mg/dL Urine Mucus (Occasional) /lpf 10/30/18 10/30/18 Range/Units 13:46 17:30 WBC (4.0-11.0) th/mm3 RBC (4.50-5.90) mil/mm3 Hgb (13.0-17.0) gm/dL Hct (39.0-51.0) % Neut % (Auto) (16.0-70.0) % [place] % (Auto) (0.0-8.0) % Lymph # (Auto) (1.0-4.8) th/mm3 PT (9.8-11.6) sec BUN (7-18) mg/dL Creatinine (0.60-1.30) mg/dL Estimated GFR (>89) mL/min Random Glucose (74-106) mg/dL Troponin I Less than 0.02 L (0.02-0.05) ng/mL Albumin (3.4-5.0) g/dL Urine Ketones Trace H (Negative) mg/dL Urine Mucus Few H (Occasional) /lpf Short CBC 10/30/18 Range/Units 13:46 WBC 3.8 L (4.0-11.0) th/mm3 Hgb 9.7 L (13.0-17.0) gm/dL Hct 28.1 L (39.0-51.0) % Plt Count 199 (150-450) th/mm3 BMP 10/30/18 13:46 Sodium 141 Potassium 3.9 Chloride 103 Carbon Dioxide 31.9 BUN 33 H Creatinine 1.57 H Calcium 8.7 Cardiac Enzymes 10/30/18 Range/Units 13:46 Troponin I Less than 0.02 L (0.02-0.05) ng/mL Liver Function 10/30/18 Range/Units 13:46 Total Bilirubin 0.5 (0.2-1.0) mg/dL AST 29 (15-37) U/L ALT 31 (12-78) U/L Alkaline Phosphatase 79 (45-117) U/L Albumin 3.2 L (3.4-5.0) g/dL Urine 10/30/18 Range/Units 17:30 Urine Color Yellow (Yellw/Straw) Urine Clarity Clear (Clear) Urine pH 5.0 (5.0-8.5) Ur Specific Pierre Part 1.014 (1.002-1.035) Urine Protein Negative (Neg-Trace) mg/dL Urine Glucose (UA) Negative (Negative) mg/dL <Ravi Jaimes - 10/31/18 10:59> Physical Exam Vital signs: Vital Signs 10/30/18 17:11 10/30/18 18:09 10/30/18 18:45 Temperature 98.7 F Pulse Rate 65 67 Respiratory Rate 20 16 Blood Pressure 175/106 H 212/130 H 164/98 H Pulse Oximetry 95 100 10/30/18 20:01 10/30/18 20:04 10/30/18 23:51 Temperature 98.2 F Pulse Rate 70 71 Respiratory Rate 18 18 Blood Pressure 116/76 Pulse Oximetry 97 10/30/18 23:56 10/31/18 00:07 10/31/18 04:00 Temperature 98.3 F Pulse Rate 75 65 Respiratory Rate 20 18 Blood Pressure 141/88 H Pulse Oximetry 97 10/31/18 04:04 10/31/18 04:51 10/31/18 08:00 Temperature 97.5 F L 97.6 F Pulse Rate 55 L 60 67 Respiratory Rate 18 18 Blood Pressure 171/81 H 162/106 H Pulse Oximetry 99 97 10/31/18 09:50 10/31/18 09:54 10/31/18 11:00 Temperature Pulse Rate 80 Respiratory Rate 18 Blood Pressure Pulse Oximetry 92 L 10/31/18 11:33 10/31/18 12:00 Temperature 97.9 F Pulse Rate 64 Respiratory Rate 18 18 Blood Pressure 145/86 H Pulse Oximetry 98 Intake & Output 10/30/18 10/31/18 10/31/18 18:59 06:59 18:59 Intake Total 500 / 500 1000 / 1000 1000 / 1000 Output Total 200 / 200 Balance 500 / 500 800 / 800 1000 / 1000 Weight 72.575 kg Intake: IV 500 / 500 1000 / 1000 1000 / 1000 D5W/1/2NS + KCL 20 mEq Inj 1, 1000 / 1000 1000 / 1000 000 ML @ 120 mls/hr IV.CONT . Q8H20M [facility] Rx#:[id number] Output: Urine 200 / 200 Other: # Voids 1 <Spencer Garcia - 10/31/18 15:23> Vital Signs 10/30/18 12:50 10/30/18 12:58 10/30/18 17:11 Temperature 97.6 F Pulse Rate 79 63 65 Respiratory Rate 16 18 20 Blood Pressure 152/93 H 184/102 H 175/106 H Pulse Oximetry 92 L 95 10/30/18 18:09 10/30/18 18:45 10/30/18 20:01 Temperature 98.7 F Pulse Rate 67 70 Respiratory Rate 16 Blood Pressure 212/130 H 164/98 H Pulse Oximetry 100 10/30/18 20:04 10/30/18 23:51 10/30/18 23:56 Temperature 98.2 F 98.3 F Pulse Rate 71 75 Respiratory Rate 18 18 20 Blood Pressure 116/76 141/88 H Pulse Oximetry 97 97 10/31/18 00:07 10/31/18 04:00 10/31/18 04:04 Temperature Pulse Rate 65 55 L Respiratory Rate 18 Blood Pressure Pulse Oximetry 10/31/18 04:51 10/31/18 08:00 10/31/18 09:50 Temperature 97.5 F L 97.6 F Pulse Rate 60 67 Respiratory Rate 18 18 Blood Pressure 171/81 H 162/106 H Pulse Oximetry 99 97 10/31/18 09:54 Temperature Pulse Rate Respiratory Rate Blood Pressure Pulse Oximetry 92 L Intake & Output 10/30/18 10/31/18 10/31/18 18:59 06:59 18:59 Intake Total 500 / 500 1000 / 1000 Output Total 200 / 200 Balance 500 / 500 800 / 800 Weight 72.575 kg Intake: IV 500 / 500 1000 / 1000 D5W/1/2NS + KCL 20 mEq Inj 1, 1000 / 1000 000 ML @ 120 mls/hr IV.CONT . Q8H20M [facility] Rx#:[id number] Output: Urine 200 / 200 <Kasia [id number] - 10/31/18 10:59> Narrative: GENERAL: Thin, male sitting up in bed in no obvious distress, doing a Sudoku puzzle. SKIN: Warm and dry. HEAD: Atraumatic. Normocephalic. EYES: Pupils equal and round. No scleral icterus. No injection or drainage. ENT: No nasal bleeding or discharge. Mucous membranes slightly moist. NECK: Trachea midline. No JVD. Chest: Port placed in left upper chest without evidence of erythema or fluctuance CARDIOVASCULAR: Regular rate and rhythm with 2 out of 6 systolic murmur. No rubs or gallops. RESPIRATORY: No accessory muscle use. Lungs clear to auscultation bilaterally. GASTROINTESTINAL: Abdomen soft, nontender, non-distended. MUSCULOSKELETAL: Extremities w/ 2+ pitting edema to mid spring on right, 2+ pitting edema to knee on the left. No calf tenderness bilaterally. NEUROLOGICAL: Awake and alert. No obvious cranial nerve deficits. Motor grossly within normal limits. Normal speech. PSYCHIATRIC: Appropriate mood and affect; insight and judgment normal. <Ravi Jaimes - 10/31/18 10:59> Assessment and Plan - Assessment (1) Dysphagia Code(s): R13.10 - Dysphagia, unspecified Status: Acute (2) Lung cancer, primary, with metastasis from lung to other site Code(s): C34.90 - Malignant neoplasm of unspecified part of unspecified bronchus or lung Status: Acute (3) Hypertension Code(s): I10 - Essential (primary) hypertension Status: Acute (4) Hypothyroidism Code(s): E03.9 - Hypothyroidism, unspecified Status: Acute (5) KIM (acute kidney injury) Code(s): N17.9 - Acute kidney failure, unspecified Status: Acute <Spencer Garcia - 10/31/18 15:23> (1) Dysphagia Code(s): R13.10 - Dysphagia, unspecified Status: Acute Plan: Likely 2/2 to lung cancer mets vs other cancer Consult to GS for PEG tube placement: Likely later today IVF @ maintenance rate w/dextrose and potassium NPO diet Dietitian consult to help with tube feeds after PEG tube is placed (2) Lung cancer, primary, with metastasis from lung to other site Code(s): C34.90 - Malignant neoplasm of unspecified part of unspecified bronchus or lung Status: Acute Plan: Planning to follow w/oncology outpatient Pain control: Fentanyl patch 25 mcg transdermal every 72 hours Morphine 2 mg IV every hour as needed for pain (3) Hypertension Code(s): I10 - Essential (primary) hypertension Status: Acute Plan: Unable to take PO Hydralazine 10 mg IV Q6H scheduled Plan to transition to oral antihypertensives through the G-tube after patient has had a G-tube placed (4) Hypothyroidism Code(s): E03.9 - Hypothyroidism, unspecified Status: Acute Plan: Levothyroxine 88 mcg PO daily (5) KIM (acute kidney injury) Code(s): N17.9 - Acute kidney failure, unspecified Status: Acute Plan: Likely 2/2 to dehydration Trend BMP daily On IVF, will con't to monitor Fluids: @ maintenance Electrolytes: Monitor and replete as needed Nutrition: NPO DVT prophy: Heparin <Ravi Jaimes - 10/31/18 11:00> - Assessment and Plan Patient is a 68-year-old male who was found to have left lung cancer with mediastinal disease who presented with dysphagia. General surgery consulted for possible PEG tube placement likely later today. Dietitian consulted to help with tube feeds. Attempting to control blood pressure and pain with IV medications. <Ravi Jaimes - 10/31/18 11:01> Discussed Condition With: Dr. Garcia. <Ravi Jaimes 10/31/18 11:01> - Attending Attestation Patient case discussed with resident physicians I have independently examined the patient I have read the above note and agree with the assessment and plan as discussed with me I was involved in all medical decision making for this patient Plan is for PEG tube placement today per general surgery Nutrition evaluation has been performed -Recommend Jevity 1.5 at 65 mL/hour or 2340 kcal/day -Recommend 100 g of protein daily -Recommend 1.186 L of free water daily Spencer Garcia MD <Spencer Garcia - 10/31/18 15:23>
[2018-10-31] MEDS: Morphine Inj 4 MG/ML Vial IV.PUSH PRN ×4 (11:09→23:20)
--- NOTE | 2018-10-31 11:58 | P.DIET ---
Nutritional Evaluation Type of nutrition evaluation: initial Nutrition consult regarding: Tube Feeding Nutrition screening: [place] (TF) Screening comments: 10/31 [place] for Tube Feeding Objective - Diagnosis esophageal obstruction 2/2, metastatic lung CA - Objective Body Mass Index: 21.1 % IBW: 87 (IBW = 184lb) Body Weight Used for Calculations: Actual (72.575kg) Energy Needs - Lower Range (kCal/kg): 30 Energy Needs - Upper Range (kCal/kg): 35 Lower Limit kCal/kg (kCals): 2,177 Upper Limit kCal/kg (kCals): 2,540 Lower Limit Protein Factor (Grams per Kg): 1.1 Upper Limit Protein Factor (Grams per Kg): 1.3 Lower Protein Needs (Protein): 80 Upper Protein Needs (Protein): 94 Dietitian Reviewed in Medical Record: Curent medications, Intake & Output, Labs , Medical history, Tube feeding Diet Order: NPO Objective Comments: PMH: DVT, lung CA, nasopharyngeal CA Meds: Synthroid and Mirtazapine (not given) Labs: BUN 33, Cr 1.57, estGFR 44, random glucose 68 UOP 1000mL Assessment Assessment: Pt currently at nutritional risk r/t acuity of disease and in need of TF'ing. Pt pending on PEG placement per GS today, [place] TF received on 10/31. RD to recommend Jevity 1.5 @ 65mL/hr to provide 2340kcal, 100g of protein, and 1186mL of free water to best meet pts assessed needs. Monitor pts TF tolerance. Labs reviewed, dietitian following. Recommendations: 1. RD to recommend Jevity 1.5 @ 65mL/hr to best meet pts assessed needs 2. Monitor pts TF tolerance 3. Dietitian following Dietitian to Monitor: Lab values, Intake & Output, Tube feeding tolerance, Medical course
[2018-10-31] MEDS ORDERED: Metoprolol Tartrate 25 MG Tablet PO ONE (13:45)
[2018-10-31] MEDS ORDERED: Chlorhexidine Gluconate 2% 1 Pack (2 Cloths) TOPICAL ONE (13:45)
[2018-10-31] MEDS ORDERED: Sodium Chlor 0.9% Inj 500 ML IV.CONT ONE (13:45)
[2018-10-31] MEDS ORDERED: Bupivacaine/Epinephrine Inj 0.25% 50 ML Vial ONE (15:23)
[2018-10-31] MEDS ORDERED: ceFAZolin 1 GM Premix Inj 1 GM/50 ML PIGGYBACK IV.SIG ONE (15:28)
--- NOTE | 2018-10-31 16:10 | ECG ---
Date Performed: 10/30/2018 Time Performed: 15:03:56 PTAGE: 68 years EKG: Sinus rhythm NORMAL ECG Since PREVIOUS TRACING , no significant change noted PREVIOUS TRACIN07/09/2018 14.38 DOCTOR: Noam Aguilar Interpretating Date/Time 10/31/2018 16:08:49
[2018-10-31] MEDS ORDERED: fentaNYL Citrate Inj 100 MCG/2 ML Ampul ONE (17:06)
[2018-11-01] MEDS: Morphine Inj 4 MG/ML Vial IV.PUSH PRN ×3 (01:40→11:03)
[2018-11-01] MEDS: hydrALAZINE HCl Inj 20 MG/ML Vial IV.PUSH SCH ×3 (01:40→12:00)
[2018-11-01 06:03] LABS: Calcium 7.8 mg/dL (8.5-10.1); Carbon Dioxide 30.9 meq/L (21.0-32.0); Magnesium 1.4 mg/dL (1.5-2.5); Potassium 3.7 meq/L (3.5-5.1)
--- NOTE | 2018-11-01 07:59 | P.OP ---
- Preoperative Diagnosis (1) Lung cancer, primary, with metastasis from lung to other site (2) Dysphagia (3) Unable to eat - Postoperative Diagnosis (1) Lung cancer, primary, with metastasis from lung to other site (2) Dysphagia (3) Unable to eat Date of procedure: 10/31/18 Procedure: Laparoscopic gastrostomy tube placement Anesthesia: [place] Surgeon: Ravi Timmons MD [employer] Truck Driver: Otilia Linda CFA Estimated blood loss (mL): 5 IV fluids (mL): 400 Pathology: none sent Operation and Findings: Patient was taken to the operating room and placed on the operating table in the supine position. After an adequate level of general endotracheal anesthesia was achieved the abdomen was prepped and draped in the usual fashion. Time-out was taken, confirming the correct patient, site, and procedure to be performed. Skin and subcutaneous tissue was infiltrated with local anesthetic and a small infraumbilical 5 mm incision was made. A 5 mm trocar was placed utilizing the laparoscope under direct vision. It entered the abdominal cavity uneventfully. The abdomen was insufflated. Two additional 5 mm trocars were placed with the first just to the right of the midline and the second in the left upper quadrant. Both entered the abdominal cavity under direct vision uneventfully. A small amount of tissue was adhered to the anterior abdominal wall at the patient's previous gastrostomy tube site. There did not appear to be any substantial remaining stomach adhered to the anterior abdominal wall and thus a new site was chosen. A single 2-0 silk suture was placed through the anterior abdominal wall and stomach in preparation to suture the stomach. The stomach was pulled anteriorly and a needle was brought in via separate stab incision and placed into the stomach. A guidewire was passed and the needle withdrawn. A dilator set was brought forward and the stomach was dilated up. An 18 [place] VENKATA feeding tube was brought up and was not able to be placed through the dilator. A larger dilator was chosen and this was then placed back into the stomach. The feeding tube was then able to be passed through the dilator and the sheath peeled away. The balloon was inflated and the stomach brought anteriorly to the abdominal wall. The previously placed silk suture was cinched down and 2 additional silk sutures were placed and tied to further buttress the stomach to the anterior abdominal wall. When this was completed, the tube was flushed and no leaks were noted. The flange was cinched down on the anterior abdominal wall with 0 silk suture and two 2-0 nylon sutures were used to secure the flange to the skin. The laparoscope and 5 mm trocars were removed. The sites were dressed with Steri-Strips after closing with 4-0 Vicryl. 4 x 4's were placed around the feeding tube. The patient was then extubated and taken back to the recovery room in stable condition. Sponge and needle counts were reported to be correct.
[2018-11-01] MEDS ORDERED: Acetaminophen-HYDROcodone 325/7.5 Liq 15 ML UDC G-TUBE PRN (08:26)
--- NOTE | 2018-11-01 09:28 | P.PNFP ---
Subjective Interval history: Patient states he feels rough. Has tenderness around site of tube placement. Denies SOB or chest pain, swelling/edema. Tube feeding starts this AM. <Jocelyne Daphney Sullivan Jonny - 11/01/18 09:28> Results - Labs Result diagrams: 10/30/18 13:46 11/01/18 04:56 <Spencer Garcia - 11/01/18 10:49> Abnormal lab results 11/01/18 11/01/18 Range/Units 04:56 04:56 Estimated GFR 71 L (>89) mL/min Calcium 7.8 L D (8.5-10.1) mg/dL Phosphorus 2.3 L (2.5-4.9) mg/dL Magnesium 1.4 L (1.5-2.5) mg/dL [facility] 11/01/18 04:56 Sodium 138 Potassium 3.7 Chloride 102 Carbon Dioxide 30.9 BUN 17 Creatinine 1.04 Calcium 7.8 L D <Spencer Garcia - 11/01/18 10:49> Abnormal lab results 11/01/18 11/01/18 Range/Units 04:56 04:56 Estimated GFR 71 L (>89) mL/min Calcium 7.8 L D (8.5-10.1) mg/dL Phosphorus 2.3 L (2.5-4.9) mg/dL Magnesium 1.4 L (1.5-2.5) mg/dL [facility] 11/01/18 04:56 Sodium 138 Potassium 3.7 Chloride 102 Carbon Dioxide 30.9 BUN 17 Creatinine 1.04 Calcium 7.8 L D <Jocelyne Roberto Sullivanmandi Fuller - 11/01/18 09:28> Physical Exam Vital signs: Vital Signs 10/31/18 11:00 10/31/18 11:33 10/31/18 12:00 Temperature 97.9 F Pulse Rate 80 64 Respiratory Rate 18 18 Blood Pressure 145/86 H Pulse Oximetry 98 10/31/18 17:24 10/31/18 17:30 10/31/18 17:45 Temperature 96.5 F L Pulse Rate 77 67 58 L Respiratory Rate 14 18 16 Blood Pressure 176/108 H 184/95 H 176/91 H Pulse Oximetry 100 100 100 10/31/18 18:00 10/31/18 18:15 10/31/18 19:00 Temperature Pulse Rate 59 L 58 L 55 L Respiratory Rate 14 14 Blood Pressure 172/99 H 171/96 H Pulse Oximetry 100 97 10/31/18 20:00 10/31/18 23:00 10/31/18 23:20 Temperature 97.3 F L 97.3 F L Pulse Rate 61 62 63 Respiratory Rate 16 12 Blood Pressure 172/108 H 145/94 H Pulse Oximetry 100 95 11/01/18 01:42 11/01/18 03:00 11/01/18 03:01 Temperature 97.3 F L Pulse Rate 67 59 L 64 Respiratory Rate 12 12 Blood Pressure 157/99 H 132/81 Pulse Oximetry 99 99 11/01/18 08:00 11/01/18 08:36 Temperature 97.8 F Pulse Rate 76 Respiratory Rate 20 Blood Pressure 167/95 H Pulse Oximetry 97 97 Intake & Output 10/31/18 11/01/18 11/01/18 18:59 06:59 18:59 Intake Total 1850 / 1850 1999 / 1999 Output Total 350 / 350 550 / 550 Balance 1500 / 1500 1450 / 1450 Intake: IV 1450 / 1450 1999 / 1999 D5W/1/2NS + KCL 20 mEq Inj 1, 1000 / 1000 1999 / 1999 000 ML @ 120 mls/hr IV.CONT . Q8H20M [facility] Rx#:[id number] Ofirmev Inj 1,000 mg In 100 ml 100 / 100 @ 0 mls/hr IV.SIG .STK-MED ONE Rx#:[id number] Diflucan 400 mg Premix Bag 200 200 / 200 ML @ 0 mls/hr IV.SIG .STK-MED ONE Rx#:[id number] Ancef 1 GM Premix Inj 1 gm In 50 / 50 50 ml @ 0 mls/hr IV.SIG .STK- MED ONE Rx#:[id number] Flagyl 500 MG Inj 100 ML @ 0 100 / 100 mls/hr IV.SIG .STK-MED ONE Rx#: [id number] Oral 0 / 0 Anesthesia Amount 400 / 400 Output: Urine 350 / 350 525 / 525 Estimated Blood Loss 0 / 0 Gastric Drainage Gastrostomy Tube (PEG) Other: # Voids 1 Date of Last Bowel Movement 10/29/18 10/29/18 <Spencer Garcia 11/01/18 10:49> Vital Signs 12/20/18 09:50 10/31/18 09:54 10/31/18 11:00 Temperature Pulse Rate 80 Respiratory Rate 18 Blood Pressure Pulse Oximetry 92 L 10/31/18 11:33 10/31/18 12:00 10/31/18 17:24 Temperature 97.9 F 96.5 F L Pulse Rate 64 77 Respiratory Rate 18 18 14 Blood Pressure 145/86 H 176/108 H Pulse Oximetry 98 100 10/31/18 17:30 10/31/18 17:45 10/31/18 18:00 Temperature Pulse Rate 67 58 L 59 L Respiratory Rate 18 16 14 Blood Pressure 184/95 H 176/91 H 172/99 H Pulse Oximetry 100 100 100 10/31/18 18:15 10/31/18 19:00 10/31/18 20:00 Temperature 97.3 F L Pulse Rate 58 L 55 L 61 Respiratory Rate 14 16 Blood Pressure 171/96 H 172/108 H Pulse Oximetry 97 100 10/31/18 23:00 10/31/18 23:20 11/01/18 01:42 Temperature 97.3 F L Pulse Rate 62 63 67 Respiratory Rate 12 12 Blood Pressure 145/94 H 157/99 H Pulse Oximetry 95 99 11/01/18 03:00 11/01/18 03:01 11/01/18 08:00 Temperature 97.3 F L 97.8 F Pulse Rate 59 L 64 76 Respiratory Rate 12 20 Blood Pressure 132/81 167/95 H Pulse Oximetry 99 97 11/01/18 08:36 Temperature Pulse Rate Respiratory Rate Blood Pressure Pulse Oximetry 97 Intake & Output 10/31/18 11/01/18 11/01/18 18:59 06:59 18:59 Intake Total 1850 / 1850 1999 / 1999 Output Total 350 / 350 550 / 550 Balance 1500 / 1500 1450 / 1450 Intake: IV 1450 / 1450 1999 / 1999 D5W/1/2NS + KCL 20 mEq Inj 1, 1000 / 1000 1999 / 1999 000 ML @ 120 mls/hr IV.CONT . Q8H20M [facility] Rx#:[id number] Ofirmev Inj 1,000 mg In 100 ml 100 / 100 @ 0 mls/hr IV.SIG .STK-MED ONE Rx#:[id number] Diflucan 400 mg Premix Bag 200 200 / 200 ML @ 0 mls/hr IV.SIG .STK-MED ONE Rx#:[id number] Ancef 1 GM Premix Inj 1 gm In 50 / 50 50 ml @ 0 mls/hr IV.SIG .STK- MED ONE Rx#:[id number] Flagyl 500 MG Inj 100 ML @ 0 100 / 100 mls/hr IV.SIG .STK-MED ONE Rx#: [id number] Oral 0 / 0 Anesthesia Amount 400 / 400 Output: Urine 350 / 350 525 / 525 Estimated Blood Loss 0 / 0 Gastric Drainage Gastrostomy Tube (PEG) Other: # Voids 1 Date of Last Bowel Movement 10/29/18 10/29/18 <Jocelyne SullivanDaphney N - 11/01/18 09:28> Narrative: GENERAL: Frail appearing male sitting up in bed in no obvious distress,sitting up in bed. SKIN: Warm and dry. HEAD: Atraumatic. Normocephalic. NECK: Trachea midline. No JVD. Chest: Port placed in left upper chest without evidence of erythema or fluctuance CARDIOVASCULAR: Regular rate and rhythm. RESPIRATORY: No accessory muscle use. Lungs clear to auscultation bilaterally. GASTROINTESTINAL: Abdomen soft, nontender, non-distended. MUSCULOSKELETAL: Minimal edema. NEUROLOGICAL: Awake and alert. Normal ROM. PSYCHIATRIC: <Jocelyne SullivanRobertoDaphney N - 11/01/18 09:28> Assessment and Plan - Assessment (1) Dysphagia Code(s): R13.10 - Dysphagia, unspecified Status: Acute (2) Lung cancer, primary, with metastasis from lung to other site Code(s): C34.90 - Malignant neoplasm of unspecified part of unspecified bronchus or lung Status: Acute (3) Hypertension Code(s): I10 - Essential (primary) hypertension Status: Acute (4) Hypothyroidism Code(s): E03.9 - Hypothyroidism, unspecified Status: Acute (5) KIM (acute kidney injury) Code(s): N17.9 - Acute kidney failure, unspecified Status: Acute <Spencer Garcia - 11/01/18 10:49> (1) Dysphagia Code(s): R13.10 - Dysphagia, unspecified Status: Acute Plan: Likely 2/2 to lung cancer mets vs other cancer GS consulted S/p PEG tube placement 10/31 IVF @ maintenance rate w/dextrose and potassium Business Systems Developer consulted, recs appreciated. Plan to start bolus tube feeds this AM If does well, may DC this afternoon Appreciate nursing education on tube feeding and medication administration (2) Lung cancer, primary, with metastasis from lung to other site Code(s): C34.90 - Malignant neoplasm of unspecified part of unspecified bronchus or lung Status: Acute Plan: Planning to follow w/oncology outpatient Pain control: Fentanyl patch 25 mcg transdermal every 72 hours Morphine 2 mg IV every hour as needed for pain (3) Hypertension Code(s): I10 - Essential (primary) hypertension Status: Acute Plan: Hydralazine 10 mg IV Q6H scheduled Plan to transition to oral antihypertensives through the G-tube after patient has had a G-tube placed (4) Hypothyroidism Code(s): E03.9 - Hypothyroidism, unspecified Status: Acute Plan: Levothyroxine 88 mcg PO daily at home (5) KIM (acute kidney injury) Code(s): N17.9 - Acute kidney failure, unspecified Status: Acute Plan: Resolved. Fluids: @ maintenance Electrolytes: Monitor and replete as needed Nutrition: tube feeding DVT prophy: Heparin <Daphney Navarrete - 11/01/18 09:10> - Assessment and Plan Patient is a 68-year-old male who was found to have left lung cancer with mediastinal disease who presented with dysphagia. General surgery consulted for possible PEG tube placement likely later today. Dietitian consulted to help with tube feeds. Attempting to control blood pressure and pain with IV medications. <Daphney Navarrete - 11/01/18 09:28> - Attending Attestation Patient case discussed with resident physicians I have independently examined the patient I have read the above note and agree with the assessment and plan as discussed with me I was involved in all medical decision making for this patient Status post PEG tube placement on 10/31/18 Begin tube feedings to see if patient tolerates them He tolerates tube feedings, may be able to be discharged home We will have case management meet with family to make sure that they have proper supplies Spencer Garcia MD <Spencer Garcia - 11/01/18 10:49>
[2018-11-01] MEDS: Tiotropium Bromide 18 MCG/ACT Inhaler INH SCH (09:49)
--- NOTE | 2018-11-01 10:35 | P.PNGS ---
Subjective Interval history: Resting in bed Mildly painful Family Medicine Residents at bedside Physical Exam Vital signs: Vital Signs 10/31/18 11:00 10/31/18 11:33 10/31/18 12:00 Temperature 97.9 F Pulse Rate 80 64 Respiratory Rate 18 18 Blood Pressure 145/86 H Pulse Oximetry 98 10/31/18 17:24 10/31/18 17:30 10/31/18 17:45 Temperature 96.5 F L Pulse Rate 77 67 58 L Respiratory Rate 14 18 16 Blood Pressure 176/108 H 184/95 H 176/91 H Pulse Oximetry 100 100 100 10/31/18 18:00 10/31/18 18:15 10/31/18 19:00 Temperature Pulse Rate 59 L 58 L 55 L Respiratory Rate 14 14 Blood Pressure 172/99 H 171/96 H Pulse Oximetry 100 97 10/31/18 20:00 10/31/18 23:00 10/31/18 23:20 Temperature 97.3 F L 97.3 F L Pulse Rate 61 62 63 Respiratory Rate 16 12 Blood Pressure 172/108 H 145/94 H Pulse Oximetry 100 95 11/01/18 01:42 11/01/18 03:00 11/01/18 03:01 Temperature 97.3 F L Pulse Rate 67 59 L 64 Respiratory Rate 12 12 Blood Pressure 157/99 H 132/81 Pulse Oximetry 99 99 11/01/18 08:00 11/01/18 08:36 Temperature 97.8 F Pulse Rate 76 Respiratory Rate 20 Blood Pressure 167/95 H Pulse Oximetry 97 97 Intake & Output 10/31/18 11/01/18 11/01/18 18:59 06:59 18:59 Intake Total 1850 / 1850 1999 / 1999 Output Total 350 / 350 550 / 550 Balance 1500 / 1500 1450 / 1450 Intake: IV 1450 / 1450 1999 / 1999 D5W/1/2NS + KCL 20 mEq Inj 1, 1000 / 1000 1999 / 1999 000 ML @ 120 mls/hr IV.CONT . Q8H20M [facility] Rx#:[id number] Ofirmev Inj 1,000 mg In 100 ml 100 / 100 @ 0 mls/hr IV.SIG .STK-MED ONE Rx#:[id number] Diflucan 400 mg Premix Bag 200 200 / 200 ML @ 0 mls/hr IV.SIG .STK-MED ONE Rx#:[id number] Ancef 1 GM Premix Inj 1 gm In 50 / 50 50 ml @ 0 mls/hr IV.SIG .STK- MED ONE Rx#:[id number] Flagyl 500 MG Inj 100 ML @ 0 100 / 100 mls/hr IV.SIG .STK-MED ONE Rx#: [id number] Oral 0 / 0 Anesthesia Amount 400 / 400 Output: Urine 350 / 350 525 / 525 Estimated Blood Loss 0 / 0 Gastric Drainage Gastrostomy Tube (PEG) Other: # Voids 1 Date of Last Bowel Movement 10/29/18 10/29/18 Narrative: Alert and awake Abd: soft; minimally tender; G tube to gravity bag with minimal drainage Results - Labs 10/30/18 13:46 11/01/18 04:56 Laboratory Results - last 24 hr 11/01/18 11/01/18 04:56 04:56 Sodium 138 Potassium 3.7 Chloride 102 Carbon Dioxide 30.9 Anion Gap 5 BUN 17 Creatinine 1.04 Estimated GFR 71 L Random Glucose 104 Calcium 7.8 L D Phosphorus 2.3 L Magnesium 1.4 L Assessment and Plan - Plan 68 year old male with dysphagia; unable to eat -Will start bolus feedings -Asked RD to give bolus recs -Will arrange [facility] for TF - is familiar with giving TF as he has had in the past -Added Hycet for pain -GS will sign off; Please call with any questions
[2018-11-01] MEDS ORDERED: Sod Chloride 0.9% Inj 1,000 ML IV.SIG SCH (11:45)
--- NOTE | 2018-11-01 12:06 | P.DIET ---
Nutritional Evaluation Type of nutrition evaluation: follow-up Nutrition consult regarding: Tube Feeding Nutrition screening: [facility] (TF) Screening comments: 10/31 [facility]DC for Tube Feeding 11/01 [facility] consult for bolus TF recs Objective - Diagnosis esophageal obstruction 2/2, metastatic lung CA - Objective % IBW: 87 (IBW = 184lb) Body Weight Used for Calculations: Actual (72.575kg) Energy Needs - Lower Range (kCal/kg): 30 Energy Needs - Upper Range (kCal/kg): 35 Lower Limit kCal/kg (kCals): 2,177 Upper Limit kCal/kg (kCals): 2,540 Lower Limit Protein Factor (Grams per Kg): 1.1 Upper Limit Protein Factor (Grams per Kg): 1.3 Lower Protein Needs (Protein): 80 Upper Protein Needs (Protein): 94 Dietitian Reviewed in Medical Record: Curent medications, Intake & Output, Labs , Medical history, Tube feeding Diet Order: NPO Objective Comments: PMH: DVT, lung CA, nasopharyngeal CA Labs; phos 2.3, Mag 1.4 Medications; reviewed Assessment Assessment: [facility] consult for bolus TF recs. Current TF order is Jevity 1.5 running at 65ml/ hour. Reassessed pt's nutritional needs which remain the same therefore home recs will closely match current order. One can of Jevity 1.5 provides (240 ml, 355kcal, 15g pro and 180ml free water) Bolus recs for d/c are as follows; 6 cans Jevity 1.5/ day to provide 2130kcal and 90g protein and 1080ml free water to best meet pt's assessed nutritional needs. Please consult RD if further recommendations are needed. Recommendations: 1. Bolus Recs for discharge; 6 cans/ day of Jevity 1.5 2. Monitor tolerance to bolus feeding 3. Consult RD if needed Dietitian to Monitor: Lab values, Intake & Output, Tube feeding tolerance, Medical course
[2018-11-01] MEDS: KCL 20 mEq/D5W/NaCl 0.45% Inj 1,000 ML IV.CONT SCH (13:04)
--- NOTE | 2018-11-01 14:46 | P.DCO ---
- Diagnosis (1) Dysphagia Status: Acute - Home Health Nursing Order: Medical education, Wound care and dressing changes Instructions: TF through G tube Bolus feedings 6 cans Jevity 1.5/ day to provide 2130kcal and 90g protein and 1080ml free water to best meet pt's assessed nutritional needs. - Case Management Consult Case Management Consult-Home Health: Yes - Certification I have seen patient Ravi Joseph on 11/01/18. My clinical findings support the need for the requested home health care services because: Limited mobility due to disease progression, Patient has SOB I certify that my clinical findings support that this patient is homebound because: Post-op weakness
--- NOTE | 2018-11-02 16:53 | P.DS ---
Date of admission: 10/30/18 15:36 Primary care physician: Wilfred Leong Brief History from admission: 68-year-old male presenting to the hospital with dysphasia and inability to swallow both liquids and solids. He was recently hospitalized at [facility] for dysphagia. While at hospital, he was evaluated with a CT of the chest showing recurrent lung cancer on the left side with mediastinal involvement. While hospitalized, GI attempted to place a PEG tube, however felt that it was safer to proceed with surgical placement, however patient left AMA yesterday prior to surgical intervention. He continues to be unable to swallow and presents to our emergency department for further evaluation and possible surgical placement of PEG tube. He has a history significant for left lung cancer status post resection and chemotherapy with apparent recurrence and bony/mediastinal involvement. He does have an oncologist with Dr. Sapp, and a left upper chest port was recently placed earlier this week in preparation for chemotherapy. He has not had any treatment for this knee recurrence of lung cancer as of yet. 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 At that time he did require a PEG tube for nutrition DS: Diagnosis - Discharge Diagnosis (1) Dysphagia Status: Acute (2) Lung cancer, primary, with metastasis from lung to other site Status: Acute (3) Hypertension Status: Acute (4) Hypothyroidism Status: Acute (5) KIM (acute kidney injury) Status: Acute DS: Medications - Discharge Medications Prescriptions: lactose-reduced food with fibr [Jevity 1.5 Elia] 2 can FEEDING TUBE TID #100 can DS: Summary Hospital Course: Patient is a 68-year-old male who was found to have left lung cancer with mediastinal disease who presented with dysphagia. General surgery consulted for possible PEG tube placement, which was performed 10/31. Dietitian consulted to help with tube feeds, recommendations were made, which were calculated to bolus feeds. BP was controlled w/IV hydralazine. Tube feedings were begun to see if patient tolerates them. Case management was consulted to ensure that they have proper supplies. Once it was seen that patient tolerated feedings well, he was discharged w/follow-up recs. - Time Spent with Patient Total time spent providing and/or coordinating discharge services: Greater than 30 minutes - Quality: VTE Deep Vein Thrombosis/Pulmonary Embolism Present on Admission: No Exam Vital signs: Vital Signs 11/01/18 17:16 Pulse Oximetry 98 Intake & Output 11/01/18 11/02/18 11/02/18 18:59 06:59 18:59 Intake Total 1000 / 1000 Balance 1000 / 1000 Intake: IV 1000 / 1000 NS Inj 1,000 ML @ 1000 mls/hr 1000 / 1000 IV.SIG [facility] Rx#:[id number] Other: Date of Last Bowel Movement 10/29/18 Narrative: GENERAL: Frail appearing male sitting up in bed in no obvious distress ,sitting up in bed. SKIN: Warm and dry. HEAD: Atraumatic. Normocephalic. NECK: Trachea midline. No JVD. Chest: Port placed in left upper chest without evidence of erythema or fluctuance CARDIOVASCULAR: Regular rate and rhythm. RESPIRATORY: No accessory muscle use. Lungs clear to auscultation bilaterally. GASTROINTESTINAL: Abdomen soft, nontender, non-distended. MUSCULOSKELETAL: Minimal edema. NEUROLOGICAL: Awake and alert. Normal ROM. PSYCHIATRIC: Results Procedures completed during hospitalization: N/A Discharge Plan - Discharge Disposition Patient Disposition: W/Home Health Service - Discharge Condition Condition: Stable - Discharge Order Discharge Orders: Discharge Order (Routine); Ordered 11/01/18 Ordered By: Daphney Casanova R2 ED Use Only Admit Order (Routine); Ordered 10/30/18 Ordered By: Lilia Berrios - Discharge Details Anticipated Discharge Date: 11/01/18 - Physicians Team Primary Care Provider: Wilfred Leong Attending Provider: Spencer Garcia Other Providers: [employer],Insurance ; [employer],Agency
== END 2018-11-01 17:15 | disposition home health service (06) ==
LOC: NEPE 12:42 → NEDA 15:36 → HCIN 17:45
PROVIDERS: ADMIT Family Medicine; ATTEND Family Medicine